=== PATIENT | female | born 1990 | race Caucasian/White ===

== ENCOUNTER → 2016-06-28 | Outpatient (CLI) | payer BC ==
--- NOTE | 2016-07-01 07:18 | USB ---
Reason for exam: clinical finding. Indicated problem(s): lump or thickening in the right breast. Physical Findings: Nurse Summary: right axilla palpable 1 x 1cm, non-tender, movable, bilateral nodularity breasts (nurse ts). US Breast RT Right breast ultrasound including all four quadrants, the retroareolar region and axilla demonstrates a 1.9 x 0.9 x 1.4cm lobular, solid, vascular lesion at palpable at axilla tail. Probable lymph node, however, follow up in 6 weeks. These results were verbally communicated with the patient and result sheet given to the patient on 06/28/16. ASSESSMENT: Probably benign, BI-RAD 3 RECOMMENDATION: Ultrasound of the right breast in 1 month. (6 weeks)
== END | disposition home or self-care (01) ==
LOC: RADUSWWP 09:40
PROVIDERS: ATTEND Surgery Plastic and Reconstructive Surgery
DX: N63 Unspecified lump in breast (principal); N64.4 Mastodynia

== ENCOUNTER → 2016-08-23 | Outpatient (CLI) | payer BC ==
--- NOTE | 2016-08-26 07:45 | USB ---
Reason for exam: clinical finding. Indicated problem(s): large axillary lymph nodes in the right breast. Physical Findings: Nurse Summary: enlarged right axilla area x 4 months (nurse dw). US Breast RT Right breast ultrasound includes all four quadrants, the retroareolar region and axilla. Finding demonstrates a 1.9 x 1.8 x 1.3cm lobulated, solid, vascular lesion at axilla at palpable versus 1.9 x 1.4 x 1.1cm, previously, slightly larger now. This likely represents a benign lesion such as a lactating adenoma. This can be reassessed following delivery. These results were verbally communicated with the patient and result sheet given to the patient on 08/23/16. ASSESSMENT: Probably benign, BI-RAD 3 RECOMMENDATION: Ultrasound of the right breast (1 month ). Depending on changes at that time, decision can be made to proceed with biopsy. [facility]
== END | disposition home or self-care (01) ==
LOC: RADUSWWP 14:15
PROVIDERS: ATTEND Surgery Plastic and Reconstructive Surgery
DX: R92.8 Other abnormal and inconclusive findings on diagnostic imaging of breast (principal)

== ENCOUNTER → 2016-11-08 | Outpatient (CLI) | payer BC ==
--- NOTE | 2016-11-11 07:27 | USB ---
Reason for exam: follow-up at short interval from prior study. History: Family history of breast cancer in maternal grandmother at age 60. Physical Findings: Nurse Summary: Enlarged right axillla since 06/21 (nurse mm). US Breast RT Right breast ultrasound includes all four quadrants, the retroareolar region and axilla. Finding demonstrate a 25 x 11 x 21mm irregular, solid, hypoechoic vascular lesion at the axilla. This finding is changed, increased in size when compared with previous exams. These results were verbally communicated with the patient and result sheet given to the patient on 11/08/16. ASSESSMENT: Suspicious, BI-RAD 4 RECOMMENDATION: Surgical consultation of the right breast. (For excisional removal). Called with mammographic findings and has scheduled an appointment for the patient for 11/19/16 at 4:[address] Anderson. PRELIMINARY REPORT CALLED AND FAXED TO DR. ANDERSON ON 11/08/16 AT 300/TMP.
== END | disposition home or self-care (01) ==
LOC: RADUSWWP 14:32
PROVIDERS: ATTEND Surgery Plastic and Reconstructive Surgery
DX: R92.8 Other abnormal and inconclusive findings on diagnostic imaging of breast (principal)

== ENCOUNTER 2016-12-20 06:22 | Day surgery (SDC) | payer BC ==
[2016-12-16 10:47] VITALS: BMI 25.0
[~2016-12-20 06:22] MED LIST: ACETAMINOPHEN IV (For NPO) 1,000 MG in EMPTY BAG 1 BAG IVPB ONE; HEPARIN SODIUM,PORCINE 5,000 UNIT/ML 1 ML VIAL SQ ONE; HYDROmorphone 1 MG/ML 1 ML SYRINGE IVP PRN; LACTATED RINGERS 1,000 ML IV SCH; MIDAZOLAM 2 MG/2 ML VIAL IV PRN; ONDANSETRON 4 MG/2 ML VIAL IVP ONE; Pre Op ABX Message 1 EACH MISC MISCELLANE ONE; SCOPOLAMINE 1.5MG/72HR PATCH TRANSDERM ONE; ceFAZolin 2 GM in SODIUM CHLORIDE 0.9% 100 ML IVPB ONE
[2016-12-20] MEDS ORDERED: LIDOCAINE 1% 20 ML VIAL (10MG/ML) FOR IV START INTRADERMA ONE (06:49)
--- NOTE | 2016-12-20 07:36 | P.GSHP ---
History of Present Illness H&P Date: 12/20/16 CHIEF COMPLAINT: Right arm pit nodule. HISTORY OF PRESENT ILLNESS: The patient is a 26-year-old female who presents reports pain along a right arm pit nodule. She presents for excison. PAST MEDICAL HISTORY: Please see list. PAST SURGICAL HISTORY: Please see list. MEDICATIONS: Please see list. ALLERGIES: Please see list. SOCIAL HISTORY: No illicit drug use FAMILY HISTORY: No reports of Crohn disease or ulcerative colitis. REVIEW OF ORGAN SYSTEMS: CONSTITUTIONAL: No reports of fevers or chills. GI: Denies any blood in stools or constipation. PHYSICAL EXAM: VITAL SIGNS: Stable GENERAL: Well-developed and pleasant in no acute distress. HEENT: No scleral icterus. Extraocular movements grossly intact. Moist buccal mucosa. NECK: Supple without lymphadenopathy. CHEST: Unlabored respirations. Equal bilateral excursions. CARDIOVASCULAR: Regular rate and rhythm. Distal 2+ pulses. ABDOMEN: Soft, nondistended. MUSCULOSKELETAL: No clubbing, cyanosis, or edema. LYMPH: Right arm pit nodule, 1.5 cm. ASSESSMENT: 1. Nodule right arm pit. PLAN: 1. Recommend proceeding with excision of right arm pit. Past Medical History Past Medical History: GERD/Reflux History of Any Multi-Drug Resistant Organisms: None Reported Past Surgical History: Ear Surgery Additional Past Surgical History / Comment(s): corrective eye surgery x3, normal vaginal delivery 2 months ago Past Anesthesia/Blood Transfusion Reactions: Postoperative Nausea & Vomiting ( PONV) Smoking Status: Former smoker - Past Family History Father Family Medical History: Deep Vein Thrombosis (DVT) Medications and Allergies Home Medications Medication Instructions Recorded Confirmed Type No Known Home Medications [No 12/16/16 12/20/16 History Known Home Medications] Allergies Allergy/AdvReac Type Severity Reaction Status Date / Time latex Allergy Rash, Verified 12/20/16 06:46 swelling Surgical - Exam Vital Signs Temp Pulse Resp BP Pulse Ox 97.5 F L 57 L 18 115/72 99 12/20/16 06:50 12/20/16 06:50 12/20/16 06:50 12/20/16 06:50 12/20/16 06:50
[2016-12-20] MEDS ORDERED: LIDOCAINE 1% INJ 10MG/ML (20 ML MDV) ONE (07:37)
[2016-12-20] MEDS ORDERED: PROPOFOL 10 MG/ML 20 ML VIAL IV ONE (07:37)
[2016-12-20] MEDS ORDERED: fentaNYL (PF) 50 MCG/ML 2 ML AMP ONE (07:37)
[2016-12-20] MEDS ORDERED: MIDAZOLAM 2 MG/2 ML VIAL ONE (07:37)
[2016-12-20] MEDS ORDERED: BUPIVACAIN-EPI 0.5%-1:200,000 30 ML VIAL SQ ONE (07:54)
[2016-12-20] MEDS ORDERED: PROMETHAZINE 25 MG TAB PO PRN (09:03)
[2016-12-20] MEDS ORDERED: ONDANSETRON 4 MG/2 ML VIAL IVP PRN (09:03)
[2016-12-20] MEDS ORDERED: HYDROcodone/APAP 5-325MG 1 EACH TAB PO PRN (09:03)
[2016-12-20] MEDS ORDERED: NALOXONE 0.4 MG/ML 1 ML VIAL IV PRN (09:03)
--- NOTE | 2016-12-20 09:10 | P.PCN ---
Date of Procedure: 12/20/16 Preoperative Diagnosis: Right arm pit nodule, family history of breast cancer and lymphoma Postoperative Diagnosis: Same, abnormal lymph node, deep right axilla Procedure(s) Performed: Excision of right axillary cyst, excision of deep axillary lymph node x 2 Implants: Anesthesia: MAC, local Surgeon: Katalina Anderson Estimated Blood Loss (ml): 5 Pathology: other (deep axillary lymph node, cyst of right axilla, aerobic and anerobic culture) Condition: stable Disposition: same day Indications for Procedure: Operative Findings: Description of Procedure:
[2016-12-20 09:12] VITALS: TEMP 97
[2016-12-20] MEDS ORDERED: diphenhydrAMINE 50 MG/ML 1 ML VIAL IVP ONE (09:33)
[2016-12-20 09:36] VITALS: RESP 16
[2016-12-20 10:49] VITALS: BP 84/54; PULSE 46
--- NOTE | 2017-01-19 16:50 | P.OP ---
Date of Procedure: 12/20/16 Description of Procedure: SURGEON: MERARI BERGER MD TREE DOCTOR: None. PREOPERATIVE DIAGNOSIS: 1. Family history of breast cancer. 2. Right axillary adenopathy, over 6 months. 3. Family history of lymphoma. 4. Abnormal axillary ultrasound. 5. Postop nausea vomiting. 6. Gastroesophageal reflux disease. POSTOPERATIVE DIAGNOSIS: 1. Family history of breast cancer. 2. Right axillary adenopathy, over 6 months. 3. Family history of lymphoma. 4. Abnormal axillary ultrasound. 5. Postop nausea vomiting. 6. Gastroesophageal reflux disease. 7. Right axillary adenopathy involving the deep axilla. OPERATION: 1. Excision of right deep axillary lymph node x 2, subfascial with hand-held LigaSure. 2. Excision of right axillary cyst, subcutaneous tissue. ANESTHESIA: GETA with local anesthetic. ESTIMATED BLOOD LOSS: 5 mL. Pathology: other (deep axillary lymph node, cyst of right axilla, aerobic and anerobic culture) COMPLICATIONS: None. INDICATIONS: The patient is a pleasant 27-year-old female who presents with history of adenopathy of the right axilla for over 6-8 months. At the time of her diagnosis, she had been . She also has a strong family history of lymphoma including breast cancer. As she is 2-3 months , now she presents for surgical excision. She has had multiple diagnostic studies including repeat ultrasounds demonstrating growth of her axillary lymph node. Surgical options were discussed for biopsy including excision of the involved lymph nodes. Per patient request, she elected for excision along the right axilla. As lymphoma could not be excluded, discussion with the pathology team was performed to provide adequate sampling for testing. Benefits and risk were described. Informed consent was obtained. DESCRIPTION OF PROCEDURE: Patient was brought into the operating room, laid in supine position. After adequate IV sedation and general anesthetic, the right axilla was prepped and draped in standard sterile fashion. After timeout protocol was confirmed with the surgical team, a field block was created using local along the right axilla. Additionally, please note preoperative medication particularly of IV antibiotics where given. Bilateral SCDs with DVT prophylaxis had been confirmed. After a field block was secured, a transverse 4 cm incision was made using a #15 blade 2 fingerbreadths below the right axillary hairbearing area. Using hemostats and minimal electro- Bovie cautery, at least 2 lymph node were hard and calcified found in the deep axilla of less than 1 cm in size. The claviclopectoral fascia was incised. The lymph nodes were found along the chest wall of the latissimus dorsi muscle. Care was taken to avoid any injury to neurovascular structures. No rupture of the lymph node had occurred upon complete excision with a hand held Ligasure. The lymph nodes were sent fresh and permanent. No further pathological lymph node was found along the deep axilla. Next along the superficial aspect of the hairbearing areas of the axilla, a axillary cyst was also identified a 3 x 4 cm. A transverse incision 3 cm superior was placed along the mid axilla. Circumferentially the cyst was dissected and resected from the subcutaneous tissue consistent with milky substance. Aerobic and anaerobic cultures were obtained of the cystic-like substance. The axillary cyst was excised in total. Hemostasis was checked with electro-Bovie cautery. All incisions were cleansed with normal saline including dilute hydrogen peroxide. The specimen was then passed off. The wound was closed in layers of the deep fascia using 3-0 Vicryl in interrupted fashion. Next for the dermis 3-0 Vicryl interrupted fashion was placed. Finally, 4-0 Monocryl in a running subcuticular fashion was placed. Once the wound was dry, Dermabond was placed. Half-inch Steri-Strips were cut and placed in parallel fashion over the wound. At the end of the procedure, needle, sponge and instrument counts had been verified correct by drug abuse technician. The patient had excellent pain control and was taken to the postanesthesia care unit in stable condition. The patient was pleased with level of care. FINDINGS: 1. 3 cm left axillary cyst completely excised in total. 2. Lymph nodes of the deep axilla 2 completely excised.
== END 2016-12-20 11:40 | disposition home or self-care (01) ==
LOC: OR 06:22
PROVIDERS: ATTEND Surgery Plastic and Reconstructive Surgery
DX: N60.11 Diffuse cystic mastopathy of right breast (principal); N60.21 Fibroadenosis of right breast; Z87.891 Personal history of nicotine dependence; Z91.040 Latex allergy status; Z80.3 Family history of malignant neoplasm of breast; K21.9 Gastro-esophageal reflux disease without esophagitis
CPT/HCPCS: 38525; 81025; 88305; 88307; 87070; 87205; 87075; 87077; 87186; 11404; J2250; J1200; J1644; J0690; J2405; J2001; J3010; J0131; J2704